=== PATIENT | female | born 1985 | race Caucasian/White ===

== ENCOUNTER 2022-05-20 08:02 | Outpatient (CLI) | payer OTHER, SELFPAY ==
--- NOTE | 2022-05-20 08:15 | CRLHL7_ITS ---
For Patients: As a result of the Century Cures Act, medical imaging exams and procedure reports are released immediately into your electronic medical record. You may view this report before your referring provider. If you have questions, please contact your health care provider. INDICATION: First trimester scan, establish dates. COMPARISON: None. TECHNIQUE: Real-time deal-scale imaging of the pelvis was performed. FINDINGS: Sonographic imaging demonstrates a single living intrauterine gestation. The embryo demonstrates a regular cardiac rate measuring 137 beats per minute. The embryo`s crown-rump length measurement of 1.1 cm corresponds to a gestational age of 7 weeks 1 day with a sonographic due date of 01/05/2023. Yolk sac visualized with mild irregularity. There are no gross abnormalities noted within the embryo at this early state of development. The gestational sac has a normal appearance. There is no evidence of a perigestational hemorrhage. The amount of fluid within the sac appears appropriate for gestational age. The cervix is closed. The myometrium appears normal. The ovaries are of normal size. Corpus luteal cyst right ovary. There are no suspicious fluid collections noted in the cul-de-sac. IMPRESSION: Single living intrauterine with sonographic gestational age 7 weeks 1 day and sonographic due date 01/05/23 Somewhat irregular normal sized yolk sac, this is of indeterminate significance. Dictated by Jhonatan Huizar MD @ 05/20/2022 9:03:39 AM (Electronically Signed)
== END 2022-05-20 08:03 | disposition home or self-care (01) ==
LOC: US 08:05
PROVIDERS: Visit Provider Physician Assistant
DX: Z34.81 Encounter for supervision of other normal pregnancy, first trimester (principal); Z3A.01 Less than 8 weeks gestation of pregnancy
CPT/HCPCS: 76817

== ENCOUNTER 2022-05-20 09:15 | Outpatient (CLI) | payer OTHER, SELFPAY ==
[2022-05-20 13:20] LABS: HIV 1/2/P24 Combo Screen* Negative (Negative)
[2022-05-20 13:22] LABS: Hepatitis B Surface Antigen* Negative (Negative)
[2022-05-20 13:39] LABS: Hepatitis C Virus Antibody* Negative (Negative)
[2022-05-20 18:12] LABS: Chlamydia DNA Amplified* NOT DETECTED (No Detected); GC DNA Amplified* NOT DETECTED (No Detected)
[2022-05-21 23:49] LABS: Rapid Plasma Reagin (RPR) Non Reactive (Non Reactive)
== END 2022-05-20 09:16 | disposition home or self-care (01) ==
PROVIDERS: Visit Provider Physician Assistant
DX: O09.521 Supervision of elderly multigravida, first trimester (principal); Z3A.01 Less than 8 weeks gestation of pregnancy
CPT/HCPCS: 84443; 86592; 86703; 86762; 86787; 86803; 86850; 86900; 86901; 87086; 87340; 87491; 87591

== ENCOUNTER 2022-06-16 09:12 | Outpatient (CLI) | payer OTHER, SELFPAY ==
[2022-06-17 19:37] LABS: Thyroid Peroxidase (TPO) Ab 2.4 IU/mL (0.0-9.0)
== END 2022-06-16 09:13 | disposition home or self-care (01) ==
LOC: NFLDREF 09:12
PROVIDERS: Visit Provider Physician Assistant
DX: O09.521 Supervision of elderly multigravida, first trimester (principal); Z3A.11 11 weeks gestation of pregnancy
CPT/HCPCS: 81420; 86376

== ENCOUNTER 2022-08-11 12:09 | Outpatient (CLI) | payer BC, SELFPAY | END 2022-08-11 12:10 | disposition home or self-care (01) | LOC: US 12:09 | PROVIDERS: Visit Provider Pediatrics Neonatal-Perinatal Medicine | DX: O09.522 Supervision of elderly multigravida, second trimester (principal); Z3A.19 19 weeks gestation of pregnancy | CPT/HCPCS: 76811 ==

== ENCOUNTER 2022-10-20 10:13 | Outpatient (CLI) | payer OTHER, SELFPAY ==
--- NOTE | 2022-10-20 10:30 | CRLHL7_ITS ---
For Patients: As a result of the Century Cures Act, medical imaging exams and procedure reports are released immediately into your electronic medical record. You may view this report before your referring provider. If you have questions, please contact your health care provider. INDICATION: Third trimester scan, evaluate growth. measuring smaller than dates COMPARISON: 08/11/2022 TECHNIQUE: Real time deal scale imaging of the fetus was performed. FINDINGS: Sonographic imaging demonstrates a single living intrauterine gestation. Fetus demonstrates a regular cardiac rate of 154 beats per minute. Fetus has a vertex position. The placenta lies anteriorly. Amniotic fluid volume appears normal and there is a single deepest vertical pocket: 6.2 cm. The estimated weight is 1340gm which lies at the 23rd %. On the prior OB ultrasound exam dated 08/11/2022 the estimated weight was at the 50th%. BPD 44th percentile. HC 66th percentile. AC 31st percentile. FL 10th percentile. The HC/AC ratio measures 1.14 range (0.98-1.20). IMPRESSION: Sonographic gestational age 29 weeks 5 days and sonographic due date 12/31/2022. Good correlation with dates. Normal interval growth. Estimated weight 23rd percentile. Abdominal circumference 31st percentile. Dictated by Jhonatan Huizar MD @ 10/20/2022 12:42:48 PM (Electronically Signed)
== END 2022-10-20 10:14 | disposition home or self-care (01) ==
LOC: US 10:14
PROVIDERS: Visit Provider Registered Nurse
DX: O36.5930 Maternal care for other known or suspected poor fetal growth, third trimester, not applicable or unspecified (principal); Z3A.29 29 weeks gestation of pregnancy
CPT/HCPCS: 76816; 86592

== ENCOUNTER 2022-12-01 09:58 | Outpatient (CLI) | payer OTHER, SELFPAY ==
[2022-12-02 14:17] LABS: Strep B DNA Probe NEGATIVE (Negative)
[2022-12-02 14:27] LABS: Strep B Pen/Amox Allergy No
== END 2022-12-01 09:59 | disposition home or self-care (01) ==
PROVIDERS: Visit Provider Obstetrics & Gynecology
DX: Z34.93 Encounter for supervision of normal pregnancy, unspecified, third trimester (principal); Z3A.33 33 weeks gestation of pregnancy
CPT/HCPCS: 87081; 87653

== ENCOUNTER 2022-12-29 06:50 | Inpatient (IN) | payer OTHER, SELFPAY ==
[2022-12-29] VITALS (53 sets, daily range): BP systolic 84–134; BP diastolic 44–92; PULSE 52–89; RESP 16–18; TEMP 36.6–37; O2SAT 97–100; BMI 24.5
[2022-12-29] MEDS: LACTATED RINGERS 1000 ML 1,000 ML 123 ML IV (08:19)
[2022-12-29] MEDS: OXYTOCIN 30 unit/500 ML in NS 30 UNIT/500 ML BAG IVPB (08:23)
--- NOTE | 2022-12-29 08:27 | W.PM.LDBA ---
Subjective History of Present Illness Time Seen by Provider: 08:15 Date Seen: 12/29/22 Narrative: Patient is being admitted to Labor and Delivery for elective IOL. She is a 37 year old at 39 4/7 weeks gestation. Her full history and physical was dictated by Dr. Doll on 12/20/22. Please see this for details. Comments: OB Problem List: 1. Spontaneous History of infertility, female (PCOS) and male factor (sperm morphology). Two previous pregnancies: IVF Normal level 2 USN 08/11/22: Dr. Jenkins recommended EFW at 30-32 weeks due to h/o IVF pregnancies. 2. AMA Level 2 ultrasound: 08/11/2022 - Dr. Jenkins reported normal. Recommended EFW at 30-32 weeks. MaterniT 21: Drawn 06/16/2022, normal. Male gender. EFW at 30-32 weeks: See #4 3. Vasovagal syncope blood draws 4. Fundal height lagging at 29 weeks. growth US 10/20/22: Estimated weight 23rd percentile. Abdominal circumference 31stpercentile. TDAP: 10/20/22 OB - Problem Based A/P Additional Plan (1) AMA (advanced maternal age) multigravida 35+: Status: Acute Plan 1. Elective IOL, plan to start IV Oxytocin, AROM when able. 2. GBS negative, no need for antibiotic prophylaxis. 3. Patient plans to get epidural. 4. Expect a vaginal delivery. OB Exam Physical Exam Vital signs: Pulse BP 62 125/75 12/29/22 07:11 12/29/22 07:11 Detailed Labor and Delivery Exam Patient Gravid: Yes Dilation (cm): 2 Effacement (%): 60 Cervix position: mid Consistency: medium Contraction Frequency: Irregular Tachysystole: No Contraction intensity: Mild Fetus (Single) Station: -3 Amniotic Membrane Status: intact Heart Rate Baseline: 135 Monitor Accelerations: Present Monitor Decelerations: None Commercial Relationship Manager Variability: Moderate (6-25)
[2022-12-29 09:33] LABS: Basophils Absolute Auto 0.03 K/uL (0.00-0.30); Basophils Percent Auto 0.3 % (0.0-3.0); Eosinophils Absolute Auto 0.01 K/uL (0.00-0.50); Eosinophils Percent Auto 0.1 % (0.0-7.0); Hematocrit 32.5 % (33.0-51.0); Hemoglobin* 10.9 gm/dL (12.0-16.0); Immature Granulocytes Abs Auto 0.04 K/uL (0.00-0.30); Immature Granulocytes Pct Auto 0.4 %; Lymphocytes Percent Auto 14.3 % (20-44); Mean Corpuscular HGB Conc 34 gm/dL (32-36); Mean Corpuscular Hemoglobin 32 pg (26-34); Mean Corpuscular Volume 95 fL (80-100); Monocytes Percent Auto 5.2 % (0.0-11.0); Neutrophils Percent Auto 79.7 % (42.0-72.0); Platelet Count* 221 K/uL (140-440); Red Blood Count 3.42 m/uL (4.00-5.20); White Blood Count* 9.26 K/uL (4.50-11.00)
[2022-12-29 09:37] LABS: Slide Review Reflex No
[2022-12-29] MEDS: ROPIVACAINE 0.2% 100 ml 100 ML 12 MG EPIDURAL (12:14)
[2022-12-29] MEDS: ROPIVACAINE 0.2 % PF 10 ML INJ 20 MG EPIDURAL (12:14)
[2022-12-29] MEDS: PHENYLEPHRINE 100 MCG/ML SYRINGE IVP ×3 (12:23→12:59)
--- NOTE | 2022-12-29 13:21 | P.ANBPRC_ITS ---
[facility] Medical History History of in vitro fertilization ?Z98.890 - Other specified postprocedural states (ICD-10) Polycystic ovaries ?E28.2 - Polycystic ovarian syndrome (ICD-10) Inversion of nipple ?N64.59 - Other signs and symptoms in breast (ICD-10) Hypothyroidism ?E03.9 - Hypothyroidism, unspecified (ICD-10) Surgical History History of third molar tooth extraction ?K08.409 - Partial loss of teeth, unspecified cause, unspecified class (ICD- 10) Family History Paternal Grandmother Breast cancer, Onset Age: 50 Maternal Grandmother Diabetes Mother High blood pressure Other No family history of colorectal cancer No family history of ovarian cancer 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 Non-smoker. No alcohol use. What is your current living situation?: I presently have a place to live Problems where you live: no known problems In the past 12 months, utilities in danger of being shut off: no In the past 12 mos, have been you worried that your food would run out before you had money to buy more?: never true In the past 12 mos, the food you bought just didn't last and you didn't have money to buy more?: never true Smoking Status: Never smoker How often does anyone, including family, friends and others, physically hurt you : never How often does anyone, including family, friends and others, insult or talk down to you: never How often does anyone, including family, friends and others, threaten you with harm: never How often does anyone, including family, friends and others, scream or curse at you: never Little interest or pleasure in doing things: not at all Feeling down, depressed, or hopeless: not at all Meds Home Medications and Allergies Home Medications Medication Instructions Recorded Confirmed Type prenat.vits,wilbur,ave-nvps-dqory 1 tab PO QDAY 06/16/22 12/29/22 History Allergies Allergy/AdvReac Type Severity Reaction Status Date / Time No Known Drug Allergies Allergy Verified 12/20/22 10:35 Results Labs Labs: Laboratory Results - last 24 hr 12/29/22 09:24 WBC 9.26 RBC 3.42 L Hgb 10.9 L Hct 32.5 L MCV 95 MCH 32 MCHC 34 RDW Coeff of Palak 13.0 Plt Count 221 Neut % (Auto) 79.7 H Lymph % (Auto) 14.3 L Harding % (Auto) 5.2 Eos % (Auto) 0.1 Baso % (Auto) 0.3 Neut # (Auto) 7.40 H Lymph # (Auto) 1.30 Harding # (Auto) 0.50 Eos # (Auto) 0.01 Baso # (Auto) 0.03 Abs Immat Gran (auto) 0.04 Imm/Tot Granulo (auto) 0.4 Blood Type O Positive Antibody Screen NEGATIVE Vital Signs Vital Signs: Last Vital Signs Temp 98.6 F 12/29/22 09:34 Pulse 80 12/29/22 13:16 Resp 18 12/29/22 09:34 BP 99/54 L 12/29/22 13:16 Pulse Ox 99 12/29/22 12:37 Weight: 71.214 kg Height: 170.18 cm Anesthesia Procedures Epidural Insertion Patient Location: OB Start Time: 11:45 Stop Time: 12:45 Start Date: 12/29/22 Stop Date: 12/29/22 Reason for Block: primary anesthetic Patient Position: sitting Performed By: Rickie Diaz Preanesthetic Checklist: IV checked, risks and benefits discussed, surgical consent, monitors and equipment checked, pre-op evaluation, timeout performed and anesthesia consent Prep: chlorhexidine gluconate Monitoring: blood pressure monitoring, service greeter, continuous pulse oximetry and heart rate Approach: midline Vertebral Space: lumbar (1-5) Needle Type: Tuohy needle Injection Technique: continuous catheter (catheter) Needle gauge: 17 Needle Length (cm): 10 cm Needle Insertion Depth (cm): 4 Catheter Gauge: 19 Catheter Type: multi-orifice Catheter at skin depth (cm): 11 Test Dose Result: negative and lidocaine 1.5% with epinephrine 1 to 200,000
--- NOTE | 2022-12-29 15:47 | W.PM.OBVAGDE ---
OB Procedure Vag Delivery Mother Details Mother Details: The patient is a 37 year-old, 3, Para 2, admitted on 12/29/22 at 39 4/7 weeks gestation for elective induction of labor. : 3 Para: 3 Weeks Gestation: 39.4 Admission Date: 12/29/22 Additional Details Amniotic Membrane Status: SROM Amniotic Membrane Rupture Date: 12/29/22 Amniotic Membrane Rupture Time: 11:24 Amniotic Membrane Fluid Description: Clear Analgesia/Anesthesia Type: Epidural Waterbirth: No Pitcoin: Yes Intrapartal Events: Labor Induction and Precipitous Labor <3 Hrs Induction Method: per pitocin protocol Delivery augmentation: pitocin Labor Onset: 11:24 Complete: 13:15 Pushin:24 Heart: heart tones during second stage were category 2. Some deep variable deceleration during uterine contraction with a slower return to baseline, accelerations with scalp stimulation in between contractions. Delivery Details Delivery Date: 12/29/22 Delivery Time: 14:02 Route of delivery: Infant Gender: Male Infant Viability: Alive; Heart Rate Present Position at Delivery: OA Delivery Details: Delivered over intact perineum via spontaneous vaginal delivery. was placed on maternal abdomen.? Cord was clamped and cut after a 30-60 second delay. Nose and mouth were bulb suctioned.? weight pending. 1 Minute Interval Total Score: 9 5 Minute Interval Total Score: 9 Additional Details Shoulder Dystocia: No Placenta Delivery Time: 14:08 Placental Delivery Description: Spontaneous Delivery repair: Vicryl Procedure Done: Global Blood Loss: 100 Laceration: Perineal - 1st Degree (Left periurethral bleeding and approximated with Vicryl 4-0 interruptedly, perineal 1st degree repaired with Vicryl 3-0.) Episiotomy Description: None Blood Loss Measurement Type: QBL Bakri Used: No Sponge/Need Count Correct: Yes Cord Vessel Description: 3 Vessels Event Summary Status: Mother and infant were stable after delivery. Disposition: floor
[2022-12-29] MEDS: ACETAMINOPHEN 500 MG TABLET 1000 MG PO (18:04)
[2022-12-29] MEDS: IBUPROFEN 600 MG TABLET PO (20:09)
[2022-12-30 00:17] VITALS: BP 118/70; PULSE 73; RESP 18; TEMP 36.9; O2SAT 98
[2022-12-30] MEDS: ACETAMINOPHEN 500 MG TABLET 1000 MG PO (00:28)
[2022-12-30 04:53] VITALS: BP 109/66; PULSE 66; RESP 18; TEMP 36.7; O2SAT 98
[2022-12-30] MEDS: IBUPROFEN 600 MG TABLET PO ×2 (04:56→11:38)
[2022-12-30 07:39] LABS: Hemoglobin* 10.6 gm/dL (12.0-16.0)
--- NOTE | 2022-12-30 07:53 | PM.OBDSVD1 ---
DS: Providers Provider Date Seen: 12/30/22 Date of admission: 12/29/22 06:50 Primary care physician: Corrina Doll MD Admitting Clinician: Vivienne Cuevas MD Attending Physician on discharge: Vivienne Cuevas MD Date of Discharge: 12/30/22 DS: Diagnosis Discharge Diagnosis (1) care following vaginal delivery: Status: Acute (2) Lactating mother: Status: Acute Exam Narrative: Exam Narrative: GENERAL APPEARANCE:? normal affect, alert, no distress? MOOD:? appropriate? CHEST:? clear to auscultation and percussion? HEART:? regular rate and rhythm? ABDOMEN:? soft, non-tender the uterine fundus is 2 cm Below Umbilicus, Midline and is appropriate for the stage of recovery. ? PERINEUM:? mild edema of the perineum, there is a 1st degree that is healing well.? EXTREMITIES:? normal and no edema? Patient has no complaints? No active bleeding?? Doing well? She is requesting discharge home.? Const: Vital Signs, click to edit/add: Vital Signs - 24 hr 12/29/22 09:30 12/29/22 09:34 12/29/22 10:35 Temperature 98.4 F 98.6 F Pulse Rate 65 65 Pulse Rate [Pulse Oximeter] Respiratory Rate 16 18 Blood Pressure 110/63 117/73 Blood Pressure [Le ft Arm] Pulse Oximetry 97 [facility] 12/29/22 11:38 12/29/22 11:39 12/29/22 12:05 Temperature 98.6 F Pulse Rate 66 Pulse Rate [Pulse Oximeter] Respiratory Rate 18 Blood Pressure 134/78 Blood Pressure [Le ft Arm] Pulse Oximetry 100 [facility] 12/29/22 12:08 12/29/22 12:09 12/29/22 12:11 Temperature Pulse Rate 60 63 61 Pulse Rate [Pulse Oximeter] Respiratory Rate Blood Pressure 109/61 115/66 123/72 Blood Pressure [Le ft Arm] Pulse Oximetry [facility] 12/29/22 12:12 12/29/22 12:14 12/29/22 12:16 Temperature Pulse Rate 63 68 Pulse Rate [Pulse Oximeter] Respiratory Rate Blood Pressure 111/63 101/63 Blood Pressure [Le ft Arm] Pulse Oximetry 100 Oxygen Delivery [facility] 12/29/22 12:17 12/29/22 12:18 12/29/22 12:19 Temperature Pulse Rate 62 65 Pulse Rate [Pulse Oximeter] Respiratory Rate Blood Pressure 93/54 L 92/50 L Blood Pressure [Le ft Arm] Pulse Oximetry 100 Oxygen Delivery Md thod 12/29/22 12:21 12/29/22 12:22 12/29/22 12:23 Temperature Pulse Rate 58 L 59 L Pulse Rate [Pulse Oximeter] Respiratory Rate Blood Pressure 90/54 L 89/55 L Blood Pressure [Le ft Arm] Pulse Oximetry 100 Oxygen Delivery [facility] 12/29/22 12:26 12/29/22 12:27 12/29/22 12:29 Temperature Pulse Rate 62 60 65 Pulse Rate [Pulse Oximeter] Respiratory Rate Blood Pressure 94/59 L 102/54 L 103/61 Blood Pressure [Le ft Arm] Pulse Oximetry 100 Oxygen Delivery [facility] 12/29/22 12:30 12/29/22 12:32 12/29/22 12:36 Temperature 98.5 F Pulse Rate 61 Pulse Rate [Pulse Oximeter] Respiratory Rate 18 Blood Pressure 84/49 L Blood Pressure [Le ft Arm] Pulse Oximetry 100 Oxygen Delivery [facility] 12/29/22 12:37 12/29/22 12:38 12/29/22 12:41 Temperature Pulse Rate 58 L 59 L Pulse Rate [Pulse Oximeter] Respiratory Rate Blood Pressure 88/50 L 102/52 L Blood Pressure [Le ft Arm] Pulse Oximetry 99 Oxygen Delivery [facility] 12/29/22 12:45 12/29/22 12:51 12/29/22 12:56 Temperature Pulse Rate 59 L 61 66 Pulse Rate [Pulse Oximeter] Respiratory Rate Blood Pressure 110/56 L 98/51 L 91/46 L Blood Pressure [Le ft Arm] Pulse Oximetry Oxygen Delivery Md thod 12/29/22 13:00 12/29/22 13:02 12/29/22 13:07 Temperature Pulse Rate 60 57 L 63 Pulse Rate [Pulse Oximeter] Respiratory Rate Blood Pressure 88/50 L 90/62 93/44 L Blood Pressure [Le ft Arm] Pulse Oximetry [facility]xygen Delivery [facility] 12/29/22 13:10 12/29/22 13:16 12/29/22 13:27 Temperature Pulse Rate 65 80 78 Pulse Rate [Pulse Oximeter] Respiratory Rate Blood Pressure 96/59 L 99/54 L 101/49 L Blood Pressure [Le ft Arm] Pulse Oximetry [facility] 12/29/22 13:35 12/29/22 13:41 12/29/22 13:51 Temperature Pulse Rate 89 58 L 69 Pulse Rate [Pulse Oximeter] Respiratory Rate Blood Pressure 130/92 H 96/47 L 99/55 L Blood Pressure [Le ft Arm] Pulse Oximetry Oxygen Delivery [facility] 12/29/22 14:08 12/29/22 14:09 12/29/22 14:23 Temperature 98.0 F Pulse Rate 67 68 Pulse Rate [Pulse Oximeter] Respiratory Rate 18 Blood Pressure 112/68 109/66 Blood Pressure [Le ft Arm] Pulse Oximetry Oxygen Delivery [facility] 12/29/22 14:23 12/29/22 14:38 12/29/22 14:38 Temperature Pulse Rate 63 Pulse Rate [Pulse Oximeter] Respiratory Rate 18 18 Blood Pressure 111/65 Blood Pressure [Le ft Arm] Pulse Oximetry Oxygen Delivery [facility] 12/29/22 14:53 12/29/22 14:53 12/29/22 15:23 Temperature Pulse Rate 62 Pulse Rate [Pulse Oximeter] Respiratory Rate 18 18 Blood Pressure 112/72 Blood Pressure [Le ft Arm] Pulse Oximetry Oxygen Delivery [facility] 12/29/22 15:24 12/29/22 15:38 12/29/22 15:38 Temperature 97.9 F Pulse Rate 58 L 57 L Pulse Rate [Pulse Oximeter] Respiratory Rate 18 Blood Pressure 121/66 115/61 Blood Pressure [Le ft Arm] Pulse Oximetry Oxygen Delivery [facility] 12/29/22 15:45 12/29/22 15:46 12/29/22 15:53 Temperature Pulse Rate 58 L 55 L Pulse Rate [Pulse Oximeter] Respiratory Rate 18 Blood Pressure 116/60 114/64 Blood Pressure [Le ft Arm] Pulse Oximetry Oxygen Delivery [facility] 12/29/22 15:53 12/29/22 16:00 12/29/22 16:00 Temperature Pulse Rate 52 L Pulse Rate [Pulse Oximeter] Respiratory Rate 18 18 Blood Pressure 113/65 Blood Pressure [Le ft Arm] Pulse Oximetry Oxygen Delivery [facility] 12/29/22 21:16 12/30/22 00:17 12/30/22 04:53 Temperature 98.3 F 98.4 F 98.1 F Pulse Rate Pulse Rate [Pulse Oximeter] 63 73 66 Respiratory Rate 16 18 18 Blood Pressure Blood Pressure [Le ft Arm] 114/66 118/70 109/66 Pulse Oximetry 99 98 98 Oxygen Delivery Me thod Room Air Room Air Room Air Documenting provider has reviewed patient's vital signs: yes OB - DS: Summary Hospital Course Hospital Course: Patient is a 37year old, G 3 now P 3? admitted on 12/29/22 at 39 Weeks, 4 Days gestation for active labor.? She had an uncomplicated vaginal delivery.? She delivered a viable male infant.? She is breast feeding and reports things are well.? the patient has done well.? Her pain is well controlled with current medications.? She has no new complaints.? Vitals have been stable. She has remained afebrile. She is voiding without difficulty. She is passing gas and has not had a bowel movement. She is ambulating and denies any dizziness. She is planning partner vasectomy and condom until then for control.? Peripartum Data Infant delivery method: Vaginal Laceration description: Perineal - 1st Degree Episiotomy description: None complications: none [place] Infant Gender: Male Infant Discharge Plan: Home Time Spent with Patient Time attestation: Total time spent providing and/or coordinating discharge services: Discharge Plan Discharge Disposition: Home, Self-Care Date of Admission: 12/29/22 06:50 Attending Provider on Discharge: Elmira Sarmiento Primary Care Provider: Corrina Doll Condition: Stable Anticipated Discharge Date/Time: 12/30/22 16:00 Discharge Medications: New docusate sodium 100 mg Capsule 100 mg PO DAILY Qty: 60 0RF Rx Instructions: Take 1-2 tablets daily as needed for constipation. ibuprofen 600 mg Tablet 600 mg PO Q6H PRNQty: 30 0RF Continued prenat.vits,wilbur,rwo-qesc-mcpkq Tablet 1 tab PO QDAY Discharge Orders: Discharge Order (Routine); Ordered 12/30/22 Ordered By: Elmira Sarmiento Additional Instructions: Discharge instructions were reviewed with the patient including signs and symptoms of infection and home going medications.? Lifting Restrictions: 20 pounds for 6? weeks? ?? Do not drive while taking narcotic pain meds.? Off Work or School for 6 weeks.? ?? Symptoms to report to doctor:? -Bleeding that saturates more than one pad per hour? -Passing clots larger than the size of a golf ball? -Pain not relieved by prescribed medication? -Fever above 100.4 degrees Fahrenheit? -A foul vaginal odor? -Difficulty in emotions, mood and functions? -Thoughts of hurting yourself and/or ? -Painful, reddened area in your breast? -Any drainage, redness or tenderness in your IV/epidural site? -Severe headache that doesn't improve after taking medications? -Changes in vision, including temporary loss of vision, blurred vision, and/or light sensitivity? -Upper abdominal pain (usually under ribs on the right side)? -Decrease in urination or painful, frequent urinating? -Chest pain? -Shortness of breath? -Tenderness or pain with redness and/swelling in the calf(s) of your leg? ?? Follow Up in clinic in 2 and 6 weeks.? ?? consultation services are available to all mothers and babies for the first year after delivery.? To make an appointment, please call [phone].? Activity Level: Activity as Tolerated Discharge Diet: Regular Follow Up Appointments: [facility] [Provider Group] Corrina Doll MD [Primary Care Provider] - Forms: MyHealth Info Instructions
[2022-12-30 08:36] VITALS: BP 111/71; PULSE 76; RESP 18; TEMP 36.4; O2SAT 98
[2022-12-30 12:06] VITALS: BP 103/67; PULSE 71; RESP 18; TEMP 37.2
== END 2022-12-30 16:05 | disposition home or self-care (01) | DRG 807 ==
PROVIDERS: Admitting Provider Obstetrics & Gynecology; PCP Obstetrics & Gynecology; Visit Provider Obstetrics & Gynecology
DX: O70.0 First degree perineal laceration during delivery (principal); Z37.0 Single live birth; O99.284 Endocrine, nutritional and metabolic diseases complicating childbirth; E28.2 Polycystic ovarian syndrome; E03.9 Hypothyroidism, unspecified; Z3A.39 39 weeks gestation of pregnancy
CPT/HCPCS: 1967; 36415; 59200; 85018; 85025; 86850; 86900; 86901; A9270; J2371; J2795; J7120